=== PATIENT | male | born 1945 | race Caucasian/White ===

== ENCOUNTER → 2016-06-02 | Outpatient (CLI) | payer BC, MEDICARE ==
--- NOTE | 2016-06-06 13:37 | CT ---
EXAM DESCRIPTION: Chest w/o Contrast CLINICAL HISTORY: 70 years Male, DYSPNEA COMPARISON: EXAM DESCRIPTION: Chest w/o Contrast CLINICAL HISTORY: 70 years Male, DYSPNEA COMPARISON: Chest radiograph obtained March 07, 2016 TECHNIQUE: Chest CT was performed without IV contrast FINDINGS: Coronary artery calcifications are noted. There is no thoracic aortic aneurysm. There is no mediastinal or hilar adenopathy. No pleural or pericardial effusion. No hiatal hernia. The central airways are clear. No airspace consolidation. There is a 7 cm lobulated low density lesion in the dome of the liver which likely represents a cyst. Smaller low density lesions are noted at the same location, too small to categorize but also probably representing cysts. There are degenerative changes in the thoracic spine at several levels. IMPRESSION: Coronary artery disease, no additional intrathoracic abnormality to explain dyspnea. 7 cm cyst in the dome of the liver. Electronically signed by: Morales Perla MD 06/03/2016 10:29 AM MUSEUM EDUCATOR
== END ==
LOC: CT 14:51
PROVIDERS: ATTEND Internal Medicine Pulmonary Disease
DX: R06.00 Dyspnea, unspecified (principal); I25.10 Atherosclerotic heart disease of native coronary artery without angina pectoris

== ENCOUNTER → 2016-07-02 | Outpatient (CLI) | payer BC, MEDICARE | END | disposition home or self-care (01) | LOC: LAB.O 08:19 | PROVIDERS: ATTEND Surgery | DX: I25.10 Atherosclerotic heart disease of native coronary artery without angina pectoris (principal) ==

== ENCOUNTER → 2016-07-24 | Outpatient (CLI) | payer BC, MEDICARE | END | disposition home or self-care (01) | LOC: LAB.O 08:15 | PROVIDERS: ATTEND Emergency Medicine | DX: Z00.00 Encounter for general adult medical examination without abnormal findings (principal); I48.91 Unspecified atrial fibrillation ==

== ENCOUNTER → 2016-08-20 | Outpatient (CLI) | payer BC, MEDICARE ==
--- NOTE | 2016-08-21 10:54 | US ---
EXAM DESCRIPTION: Liver ultrasound CLINICAL HISTORY: 70 years Male, LIVER DISEASE, UNSPECIFIED TECHNIQUE: Ultrasound of the liver, gallbladder and pancreas was performed. Grayscale images were saved patient's medical record. IMPRESSION: There is a right hepatic cyst noted measuring roughly 5 cm in diameter. The remaining liver is unremarkable. No intra or extrahepatic biliary duct dilatation. The common bile duct measures 2.7 mm in diameter. The pancreas is unremarkable. Gallbladder is present and unremarkable. IMPRESSION: 5 cm right hepatic lobe cyst. The remaining study is unremarkable. Electronically signed by: Wilberto Phillips MD 08/21/2016 10:54 AM CDT
== END | disposition home or self-care (01) ==
LOC: US 12:50
PROVIDERS: ATTEND Emergency Medicine
DX: K76.89 Other specified diseases of liver (principal)

== ENCOUNTER → 2016-09-27 | Outpatient (CLI) | payer BC, MEDICARE | END | disposition home or self-care (01) | LOC: LAB 08:17 | PROVIDERS: ATTEND Emergency Medicine | DX: Z00.00 Encounter for general adult medical examination without abnormal findings (principal) | CPT/HCPCS: 36415; 80074; 83036; G0103 ==

== ENCOUNTER → 2016-12-26 | Outpatient (CLI) | payer BC, MEDICARE ==
--- NOTE | 2016-12-29 08:27 | US ---
Study: Right upper quadrant abdominal ultrasound. Indication: LIVER DISEASE. K76.9 Technical: Multiplanar, grayscale sonogram of the right upper quadrant of the abdomen obtained. Comparison: None. Findings: The liver is normal in echogenicity. There is a 5.6 cm cyst within the right hepatic lobe peripherally. No gallstones, gallbladder wall thickening, or pericholecystic edema. Several nonmobile gallbladder polyp suspected measuring up 7 mm. The common bile duct measures 6 mm in diameter. No intrahepatic biliary ductal dilatation. The right kidney is unremarkable. Midline structures including the pancreas, aorta, and IVC not well characterized due to shadowing bowel gas. Impression: Multiple gallbladder polyps. 5.6 cm right hepatic lobe cyst. Electronically signed by: Kj Pak MD 12/29/2016 8:26 AM CDT
== END | disposition home or self-care (01) ==
LOC: US 09:03
PROVIDERS: ATTEND Emergency Medicine
DX: K76.89 Other specified diseases of liver (principal); K82.4 Cholesterolosis of gallbladder

== ENCOUNTER → 2017-03-03 | Outpatient (CLI) | payer BC, MEDICARE ==
--- NOTE | 2017-03-05 16:18 | MRI ---
EXAM DESCRIPTION: Abdomen w/wo Contrast CLINICAL HISTORY: 71 years Male, LIVER. Recent ultrasound shows enlargement of hepatic cyst COMPARISON: Ultrasound December 26, 2016 TECHNIQUE: Multiplanar, multisequence MR images of the abdomen are obtained with and without infusion of IV gadolinium contrast. FINDINGS: There is a smoothly lobulated fluid signal mass in the dome of the right lobe liver measuring 6.8 x 6.2 x 7.1 cm. Question mild thin internal septations. No abnormal enhancement or soft tissue component is seen. There is an 8 mm fluid signal cyst in the dome of the right lobe liver. 5 mm fluid signal subcapsular cyst in the mid right lobe is seen with 1.6 cm fluid signal smoothly marginated cyst in the caudate lobe. Hepatic vasculature is unremarkable. Spleen, pancreas, adrenal glands, and kidneys are unremarkable. Visualized stomach, small bowel, and colon are unremarkable. Gallbladder is unremarkable. The polyps seen on previous ultrasound are not appreciated on MRI imaging. IMPRESSION: There is a 7.1 cm cyst in the dome of the right lobe liver contains mildly thickened septations. No worrisome features or abnormal enhancement is seen. Multiple smaller simple anechoic cysts are identified. Electronically signed by: Robert Hernandez MD 03/05/2017 4:17 PM LANDFILL GRADER
== END | disposition home or self-care (01) ==
LOC: MRI 10:21
PROVIDERS: ATTEND Neurological Surgery
DX: K76.89 Other specified diseases of liver (principal)

== ENCOUNTER → 2017-06-06 | Outpatient (CLI) | payer MEDICARE, BC | LOC: LAB.O 08:20 | PROVIDERS: ATTEND Emergency Medicine | DX: E78.5 Hyperlipidemia, unspecified (principal); I48.91 Unspecified atrial fibrillation; Z00.00 Encounter for general adult medical examination without abnormal findings; Z13.1 Encounter for screening for diabetes mellitus ==

== ENCOUNTER 2019-06-26 01:19 | Emergency (ER) | payer BC ==
[2019-06-26] MEDS ORDERED: KETOROLAC TROMETHAMINE INJ 30 MG/ML VIAL IM ONE (01:37)
[2019-06-26] MEDS ORDERED: HYDROcodone 7.5MG/APAP 325MG 1 EA TAB PO ONE (01:37)
[2019-06-26 01:39] VITALS: TEMP 96.9
--- NOTE | 2019-06-26 02:05 | RAD ---
EXAM DESCRIPTION: X-ray two view chest. CLINICAL HISTORY: 73 years Male, chest pain after cough COMPARISON: Chest x-ray performed on 03/07/[address] chest performed on 06/02/2016 TECHNIQUE: PA and Lateral views of the chest performed on 06/26/2019 at 1:29 AM FINDINGS: The lungs are well expanded and are clear. There is minimal right middle lobe atelectasis. The costophrenic sulci are clear. There is no evidence of a pneumothorax. The cardiac silhouette is normal in size. There are remote postsurgical changes of the mediastinum which is new since 2016. The mediastinal contours are normal. No acute osseous abnormalities are identified. No focal soft tissue abnormalities are identified. IMPRESSION: No evidence of acute intrathoracic disease. Remote median sternotomy, new since 2016. Electronically signed by: Leonor Emery DO 06/26/2019 2:03 AM CDT
--- NOTE | 2019-06-26 02:18 | ED.PDOC ---
History of Present Illness - General Time Seen by Provider: 06/26/19 01:33 Source: patient Exam Limitations: no limitations - History of Present Illness Initial Comments: The patient is a 73-year-old male presented emergency room secondary to pain to his right anterior lower rib cage. The patient has had a bronchitis for the last 3 or 4 days that he apparently got from his . He is not hypoxic he is not short of breath but he does have a significant cough. No fevers. He coughed hard enough that he seems to have sprained the rib to the right lower anterior chest wall. It causes significant pain with coughing which is the reason that he showed up here. Vital signs are stable. Lung sounds are good with the exception of mild rhonchi. No other symptoms. Timing/Duration: unsure Severity: moderate Improving Factors: nothing Worsening Factors: movement Associated Symptoms: cough, malaise Allergies/Adverse Reactions: Allergies NO KNOWN ALLERGY Allergy (Unverified 02/18/14 20:51) Home Medications: Ambulatory Orders Bisoprolol & Hydrochlorothiazi [Bisoprolol Fumarate/[place] 10-6.25 mg] 1 tab PO DAILY 02/18/14 Ezetimibe-Simvastatin [Vytorin 10-40 mg] 1 tab PO DAILY 02/18/14 Niacin (Antihyperlipidemic) [Niaspan] 500 mg PO DAILY 02/18/14 Tramadol HCl 50 mg PO Q8HR PRN #20 tab 06/26/19 Review of Systems - Review of Systems Constitutional: States: malaise EENTM: States: no symptoms reported Respiratory: States: cough Cardiology: States: chest pain Gastrointestinal/Abdominal: States: no symptoms reported Genitourinary: States: no symptoms reported Musculoskeletal: States: see HPI Skin: States: no symptoms reported Neurological: States: no symptoms reported Endocrine: States: no symptoms reported Hematologic/Lymphatic: States: no symptoms reported All other Systems: No Change from Baseline Past Medical History (General) - Patient Medical History Hx Seizures: No Hx Stroke: No Hx Dementia: No Hx Asthma: No Hx of COPD: No Hx Cardiac Disorders: Yes - CABG Hx Congestive Heart Failure: No Hx Pacemaker: No Hx Hypertension: Yes Hx Thyroid Disease: No Hx Diabetes: No Hx Gastroesophageal Reflux: No Hx Renal Disease: No Hx Cancer: No Hx of HIV: No Hx Hepatitis C: No Hx MRSA: No Surgical History: coronary bypass surgery - Vaccination History Hx Tetanus, Diphtheria Vaccination: Yes Hx Influenza Vaccination: No Hx Pneumococcal Vaccination: Yes - Social History Hx Tobacco Use: No Hx Chewing Tobacco Use: No Hx Alcohol Use: No Hx Substance Use: No Hx Substance Use Treatment: No Hx Depression: No Feels Threatened In Home Enviroment: No Feels Threatened In a Relationship: No Hx Physical Abuse: No Hx Emotional Abuse: No Hx Suspected Abuse: No - Female History Patient is a Female of Child Bearing Age (10 -59 yrs old): No Patient : No Family Medical History - Family History Mother Family History: Unknown Physical Exam - Physical Exam General Appearance: Alert, No apparent distress, Other - Obviously uncomfortable with coughing Eye Exam: bilateral normal Ears, Nose, Throat: hearing grossly normal, normal ENT inspection Neck: full range of motion, supple Respiratory: no respiratory distress, no accessory muscle use, rhonchi - Mild scattered, other - Right anterior lower chest wall tenderness to palpation. No crepitus. No bruising. Good underlying air movement. Cardiovascular/Chest: normal peripheral pulses, regular rate, rhythm, no edema Peripheral Pulses: radial,right: 2+, radial,left: 2+, dorsalis pedis,right: 2+, dorsalis pedis,left: 2+ Gastrointestinal/Abdominal: non tender, soft Rectal Exam: deferred Back Exam: no CVA tenderness, no vertebral tenderness Extremity: normal range of motion, non-tender, normal inspection, no pedal edema, normal capillary refill Neurologic: hand shaker II-XII nml as tested, alert, normal mood/affect, oriented x 3 Skin Exam: normal color Comments: Vital Signs - 24 hr 06/26/19 01:34 Temperature 96.9 F L Pulse Rate [ 83 Pulse ox] Respiratory 18 Rate Blood Pressure 187/106 [Left Arm] O2 Sat by Pulse 97 Oximetry Progress - Progress Progress: 06/26/19 02:21 The patient is a 73-year-old male presenting primarily due to right anterior lower rib and chest wall pain due to coughing. This is likely an intercostal muscle strain. The patient has been given a dose of hydrocodone here and will be written for tramadol as an outpatient. Also [id number] ibuprofen or Aleve can be taken which should help. Topical heat may help. He does need to take big deep breaths in order to prevent fluid accumulation which puts him at risk for pneumonia. He does need to complete his course of azithromycin and oral steroid as written by his primary care doctor. No evidence of any hypoxia or respiratory distress. I do want him to follow back up with his primary care doctor in 2 or 3 days. ER warnings are given. adelia hogan 747 load dropper aware evaluated - Results/Orders Results/Orders: Chest x-ray shows no acute pathology. Departure - Departure Clinical Impression: Intercostal muscle strain Qualifiers: Encounter type: initial encounter Qualified Code(s): S29.011A - Strain of mus howard and tendon of front wall of thorax, initial encounter Disposition: Discharge to Home or Self Care Condition: Fair Diet: regular diet Activity: increase activity as tolerated Referrals: BRENDA SEWELL [Primary Care Provider] - 1-2 Weeks Prescriptions: Tramadol HCl 50 mg PO Q8HR PRN #20 tab PRN Reason: Moderate Pain Home Medications: Ambulatory Orders Bisoprolol & Hydrochlorothiazi [Bisoprolol Fumarate/[place] 10-6.25 mg] 1 tab PO DAILY 02/18/14 Ezetimibe-Simvastatin [Vytorin 10-40 mg] 1 tab PO DAILY 02/18/14 Niacin (Antihyperlipidemic) [Niaspan] 500 mg PO DAILY 02/18/14 Tramadol HCl 50 mg PO Q8HR PRN #20 tab 06/26/19 Additional Instructions: The patient is a 73-year-old male presenting primarily due to right anterior lower rib and chest wall pain due to coughing. This is likely an intercostal muscle strain. The patient has been given a dose of hydrocodone here and will be written for tramadol as an outpatient. Also [id number] ibuprofen or Aleve can be taken which should help. Topical heat may help. He does need to take big deep breaths in order to prevent fluid accumulation which puts him at risk for pneumonia. He does need to complete his course of azithromycin and oral steroid as written by his primary care doctor. No evidence of any hypoxia or respiratory distress. I do want him to follow back up with his primary care doctor in 2 or 3 days. ER warnings are given.
[2019-06-26 03:07] VITALS: BP 161/83; O2SAT 96
== END 2019-06-26 02:30 | disposition home or self-care (01) ==
LOC: ER 01:19
DX: S29.011A Strain of muscle and tendon of front wall of thorax, initial encounter (principal); R05 Cough; I51.9 Heart disease, unspecified; I10 Essential (primary) hypertension; Z95.1 Presence of aortocoronary bypass graft; X50.9XXA Other and unspecified overexertion or strenuous movements or postures, initial encounter; Y92.9 Unspecified place or not applicable
CPT/HCPCS: 71046; J1885